=== PATIENT | female | born 1930 | race Caucasian/White ===

== ENCOUNTER → 2018-05-01 | Day surgery (SDC) | payer MEDICARE ==
[2018-04-27 11:16] LABS: BASOPHILS # (AUTO) 0.1 (0.0-0.1); EOSINOPHILS # (AUTO) 0.1 (0.0-0.4); EOSINOPHILS % 1.3 % (0.0-6.0); HEMATOCRIT 31.5 % (34.2-44.1); HEMOGLOBIN 10.9 g/dL (12.0-16.0); LYMPHOCYTES # (AUTO) 1.7 (1.0-3.2); MEAN CORPUSCULAR HGB CONC 34.6 g/dL (31-35); MEAN CORPUSCULAR VOLUME 89.5 fL (81-99); MONOCYTES # (AUTO) 0.7 (0.2-0.8); MONOCYTES % 8.6 % (4.4-11.3); NEUTROPHILS # (AUTO) 5.3 (2.1-6.9); NEUTROPHILS % 66.8 % (38.7-80.0); PLATELET COUNT 286 x10e3/uL (140-360); RED BLOOD COUNT 3.52 x10e6/uL (3.6-5.1); RED CELL DISTRIBUTION WIDTH 12.2 % (11.7-14.4)
[~2018-05-01] MED LIST: ALPRAZOLAM0.5 M1; ARMOUR THYROID60 MG PO; CENTRUM SILVER1 EAC3; CITRACAL + D M1 EACH; COQ-10100 MG; DILTIAZEM 24HR180 M1; FISH OIL 1,0001 EAC2; GLUCOSAMINE SU750 M1; IRBESARTAN150 MG PO; KETAMINE HCL INJ 50 MG/ML 10 ML VIAL ONE; LIDOCAINE HCL 2% LOCAL INJ 5 ML SDV VIAL INJ ONE; MECLIZINE HCL12.5 MG PO; MONTELUKAST SOD10 MG PO; PANTOPRAZOLE SO40 MG PO; PROPOFOL IV EMULSION 10 MG/ML 50 ML VIAL ONE
[2018-05-01 11:30] VITALS: BP 143/83
--- NOTE | 2018-05-01 13:02 | Operative Report ---
DATE OF PROCEDURE: May 01, 2018 REFERRING PHYSICIAN: Dr. Rashi Capellan. PROCEDURE PERFORMED: Esophagogastroduodenoscopy. INDICATIONS FOR PROCEDURE: Upper abdominal pain, history of melena. MEDICATION: Patient was done under MAC. Please see anesthesiologist's note. PROCEDURE: With the patient in the left lateral decubitus position, the flexible fiberoptic Olympus gastroscope was introduced into the esophagus under direct visualization without any difficulty. The esophagus was within normal limits. The scope was then advanced with ease into the stomach, traversing a small sliding hiatal hernia. Mucosa overlying the antrum and the body revealed some patchy erythema and moderate edema, and biopsies were obtained and sent to stain for H. pylori. Pylorus appeared to be of normal contour and shape, was intubated with ease, and the scope was advanced all the way to the 2nd portion of the duodenum. The scope was then withdrawn slowly. Mucosa overlying the proximal 2nd portion and the duodenal bulb appeared to be within normal limits. The scope was then withdrawn back into the stomach and retroflexed, and the mucosa overlying the fundus and the cardia appeared to be within normal limits. The scope was then straightened out. The stomach was decompressed. The scope was subsequently withdrawn. Patient tolerated the procedure well. IMPRESSION: 1. Normal esophagus. 2. Small sliding hiatal hernia. 3. Gastritis biopsied. Biopsies sent to stain for H. pylori. PLAN: Follow up histology. Initiate Protonix 40 mg 1 p.o. q.a.m. a.c. Job#: [id number] EV cc:RASHI CAPELLAN M.D.
== END | disposition home or self-care (01) ==
LOC: OR 08:58
PROVIDERS: ATTEND Internal Medicine Gastroenterology
DX: K29.70 Gastritis, unspecified, without bleeding (principal); Z12.11 Encounter for screening for malignant neoplasm of colon; K59.00 Constipation, unspecified; K92.1 Melena; R10.13 Epigastric pain; R14.2 Eructation; Z87.19 Personal history of other diseases of the digestive system; Z88.1 Allergy status to other antibiotic agents; Z88.8 Allergy status to other drugs, medicaments and biological substances; K44.9 Diaphragmatic hernia without obstruction or gangrene; I12.9 Hypertensive chronic kidney disease with stage 1 through stage 4 chronic kidney disease, or unspecified chronic kidney disease; N18.9 Chronic kidney disease, unspecified; K31.9 Disease of stomach and duodenum, unspecified; Z01.810 Encounter for preprocedural cardiovascular examination; Z01.812 Encounter for preprocedural laboratory examination
CPT/HCPCS: 36415; 43239; 85025; 88305; 88312; 93005; J2001

== ENCOUNTER 2018-07-01 18:25 | Observation (INO) | payer MEDICARE ==
[~2018-07-01] VITALS: Ht 160 cm; Wt 49.9 kg
[~2018-07-01 18:25] MED LIST changes: -KETAMINE HCL INJ 50 MG/ML 10 ML VIAL ONE; -LIDOCAINE HCL 2% LOCAL INJ 5 ML SDV VIAL INJ ONE; -PROPOFOL IV EMULSION 10 MG/ML 50 ML VIAL ONE
--- OUTSIDE RECORDS SUMMARY | 2018-07-01 18:30 | XMS REPORT | Clinical Summary ---
Author Author [facility] Organization [facility] Address Unknown Phone Unavailable Care Team Providers Care Band Nailer Name Role Phone Asked, No Pcp PCP Unavailable Allergies Comments Active Allergy Reactions Severity Noted Date Codeine 12/30/2016 Morphine 12/14/2017 Penicillins 12/14/2017 Prednisone 12/30/2016 Sulfa (Sulfonamide 12/30/2016 Antibiotics) Medications End Date Status Medication Sig Dispensed Refills Start Date Active ALPRAZolam (XANAX) 0.5 MG Take 0.25 mg 0 tablet by mouth 2 (two) times a day. Active valsartan (DIOVAN) 160 MG Take 160 mg 0 tablet by mouth 2 (two) times a day. Active thyroid, pork, (ARMOUR Take 60 mg by 0 THYROID) 60 mg tablet mouth daily. Active diltiazem (CardIZEM) 90 Take 180 mg 0 MG tablet by mouth 2 (two) times a day. Active folic Take 1 tablet 0 acid/multivit-min/lutein by mouth (CENTRUM SILVER ORAL) daily. Active calcium citrate-vitamin Take 1 tablet 0 D3 (CITRACAL+D) 315-200 by mouth 2 mg-unit per tablet (two) times a day. Active om Take 2 0 3/E/linol/ala/oleic/gla/l capsules by ip (OMEGA 3-6-9 ORAL) mouth daily. Active glucosamine sulfate Take 1 tablet 0 (GLUCOSAMINE) 500 mg by mouth 2 tablet (two) times a day. Active coenzyme Q10 200 mg Take 200 mg 0 capsule by mouth daily. 01/01/2018 Discontinued azithromycin (ZITHROMAX) Take first 2 6 tablet 0 250 MG tablet tablets 8 together, then 1 every day until finished. 12/23/2017 Discontinued benzonatate (TESSALON) Take 1 21 capsule 0 100 MG capsule capsule (100 8 mg total) by mouth every 8 (eight) hours for 30 days. 12/23/2017 Discontinued albuterol (PROAIR Inhale 2 1 Inhaler 0 HFA,PROVENTIL puffs every 4 8 HFA,VENTOLIN HFA) 90 (four) hours mcg/actuation inhaler as needed for wheezing for up to 30 days. 12/23/2017 Discontinued pantoprazole (PROTONIX) Take 20 mg by 0 20 MG EC tablet mouth 2 (two) times a day before meals. 01/31/2018 clonIDINE (CATAPRES) 0.1 Take 1 tablet 30 tablet 0 MG tablet (0.1 mg 8 total) by mouth every 8 (eight) hours as needed for high blood pressure (SBP >180 or DBP >105) for up to 30 days. Active Problems Problem Noted Date Pneumonia of left lower lobe due to infectious organism 12/17/2017 Acute bronchitis with bronchospasm 12/14/2017 Essential hypertension 12/30/2016 Gastroesophageal reflux disease without esophagitis 12/30/2016 Resolved Problems Problem Noted Date Resolved Date Pneumonia 12/20/2017 01/01/2018 Hoarseness of voice 12/14/2017 12/30/2017 Hypoxia 12/14/2017 12/30/2017 Chest pain 12/30/2016 12/30/2017 Encounters Care Team Description Date Type Specialty Ney Paula MD Pneumonia of left lower lobe due to infectious organism (Primary Dx); Essential hypertension 12/19/2017 [facility] Acute - Encounter 01/01/2018 Sp De Oliveira MD 12/17/2017 Hospital Radiology Encounter Sp De Oliveira MD Hasnain, Syed Zafar, MD Pneumonia of left lower lobe due to infectious organism (Primary Dx); Cough; Bronchospasm 12/17/2017 Hospital General Internal Medicine - Encounter 12/19/2017 Misbah Meyers MD 12/14/2017 Hospital Radiology Encounter Misbah Meyers MD Acute bronchitis with bronchospasm (Primary Dx); Hypoxia; Hoarseness of voice 12/14/2017 Emergency Emergency Medicine after 06/30/2017 Family History Medical History Relation Name Comments Heart disease Father Hypertension Mother Relation Name Status Comments Father Mother Social History Date Tobacco Use Types Packs/Day Years Used 09/19/1949 - 12/17/1964 Former Smoker Cigarettes Smokeless Tobacco: Never Used Tobacco Cessation: Counseling Given: No Alcohol Use Drinks/Week oz/Week Comments No Sex Assigned at Date Recorded Not on file Industry Job Start Date Occupation Not on file Not on file Not on file Travel End Travel History Travel Start No recent travel history available. Last Filed Vital Signs Time Taken Vital Sign Reading 01/01/2018 3:39 PM CDT Blood Pressure 139/63 01/01/2018 3:39 PM CDT Pulse 65 01/01/2018 3:39 PM CDT Temperature 36.5 C (97.7 F) 01/01/2018 3:39 PM CDT Respiratory Rate 19 01/01/2018 3:39 PM CDT Oxygen Saturation 97% - Inhaled Oxygen - Concentration 12/20/2017 5:00 AM CDT Weight 52.9 kg (116 lb 9.6 oz) 12/17/2017 10:14 PM CDT Height 160 cm (5' 3") 12/20/2017 5:00 AM CDT Body Mass Index 20.65 Plan of Treatment Health Maintenance Due Date Last Done Comments SHINGRIX VACCINE (1 of 2) 1979 ZOSTER VACCINE 1989 PNEUMOCOCCAL 1994 POLYSACCHARIDE VACCINE AGE 65 AND OVER PNEUMOCOCCAL-13 1994 INFLUENZA VACCINE 03/04/2018 Procedures Comments Procedure Name Priority Date/Time Associated Diagnosis ZZESTIMATED GFR Routine 12/28/2017 4:00 AM CDT BASIC METABOLIC PANEL Routine 12/28/2017 4:00 AM CDT HC COMPLETE BLD COUNT Routine 12/28/2017 W/AUTO DIFF 4:00 AM CDT ZZESTIMATED GFR Routine 12/25/2017 5:00 AM CDT BASIC METABOLIC PANEL Routine 12/25/2017 5:00 AM CDT HC COMPLETE BLD COUNT Routine 12/25/2017 W/AUTO DIFF 5:00 AM CDT ECG 12-LEAD STAT 12/20/2017 6:16 AM CDT ZZESTIMATED GFR Routine 12/19/2017 4:15 AM CDT BASIC METABOLIC PANEL Routine 12/19/2017 4:15 AM CDT HC COMPLETE BLD COUNT Routine 12/19/2017 W/AUTO DIFF 4:15 AM CDT ZZESTIMATED GFR Routine 12/18/2017 5:10 AM CDT COMPREHENSIVE METABOLIC Routine 12/18/2017 PANEL 5:10 AM CDT HC COMPLETE BLD COUNT Routine 12/18/2017 W/AUTO DIFF 5:10 AM CDT INFLUENZA ANTIGEN Routine 12/17/2017 7:00 PM CDT BLOOD CULTURE, AEROBIC & Routine 12/17/2017 ANAEROBIC 6:[address] CHEST WO CONTRAST STAT 12/17/2017 6:44 PM CDT ZZESTIMATED GFR STAT 12/17/2017 6:10 PM CDT COMPREHENSIVE METABOLIC STAT 12/17/2017 PANEL 6:10 PM CDT HC COMPLETE BLD COUNT STAT 12/17/2017 W/AUTO DIFF 6:10 PM CDT BLOOD CULTURE, AEROBIC & Routine 12/17/2017 ANAEROBIC 6:10 PM CDT XR CHEST 1 VW PORTABLE STAT 12/14/2017 3:57 PM CDT after 06/30/2017 Results * Estimated GFR (12/28/2017 4:00 AM CDT) Only the most recent of 5 results within the time period is included. GFR Non Af Amer 35 (A) mL/min/1.73 m2 [facility] DEPARTMENT OF PATHOLOGY AND GENOMIC MEDICINE GFR Af Amer 43 (A) mL/min/1.73 m2 [facility] DEPARTMENT OF Comment: PATHOLOGY AND Chronic kidney disease: <60 GENOMIC MEDICINE mL/min/1.73m2 Kidney failure: <15 mL/min/1.73m2 The estimated GFR is calculated from the IDMS-traceable Modification of Diet in Renal Disease Equation. The accuracy of the calculation is poor when the creatinine is normal. Calculated values >90 mL/min/1.73m2 are not reported. This equation has not been validated in children (<18 years), women, the elderly (>70 years), or ethnic groups other than Caucasians and Americans. Specimen Plasma specimen Performing Organization Address City/State/Zipcode Phone Number [facility] DE[place]MENT [place] [id number] [place] [id number] PATHOLOGY AND GENOMIC MEDICINE * CBC with platelet and differential (12/28/2017 4:00 AM CDT) Only the most recent of 5 results within the time period is included. WBC 8.22 4.50 - 11.00 k/uL [facility] DEPARTMENT OF PATHOLOGY AND GENOMIC MEDICINE RBC 3.68 (L) 4.20 - 5.50 m/uL [facility] DEPARTMENT OF PATHOLOGY AND GENOMIC MEDICINE HGB 10.9 (L) 12.0 - 16.0 g/dL [facility] DEPARTMENT OF PATHOLOGY AND GENOMIC MEDICINE HCT 32.1 (L) 37.0 - 47.0 % [facility] DEPARTMENT OF PATHOLOGY AND GENOMIC MEDICINE MCV 87.2 82.0 - 100.0 fL [facility] DEPARTMENT OF PATHOLOGY AND GENOMIC MEDICINE MCH 29.6 27.0 - 34.0 pg [facility] DEPARTMENT OF PATHOLOGY AND GENOMIC MEDICINE MCHC 34.0 31.0 - 37.0 g/dL [facility] DEPARTMENT OF PATHOLOGY AND GENOMIC MEDICINE RDW - SD 41.0 37.0 - 55.0 fL [facility] DEPARTMENT OF PATHOLOGY AND GENOMIC MEDICINE MPV 9.5 8.8 - 13.2 fL [facility] DEPARTMENT OF PATHOLOGY AND GENOMIC MEDICINE Platelet count 306 150 - 400 k/uL [facility] DEPARTMENT OF PATHOLOGY AND GENOMIC MEDICINE Neutrophils 59.2 39.0 - 69.0 % [facility] DEPARTMENT OF PATHOLOGY AND GENOMIC MEDICINE Lymphocytes 26.0 25.0 - 45.0 % [facility] DEPARTMENT OF PATHOLOGY AND GENOMIC MEDICINE Monocytes 11.4 (H) 0.0 - 10.0 % [facility] DEPARTMENT OF PATHOLOGY AND GENOMIC MEDICINE Eosinophils 2.2 0.0 - 5.0 % [facility] DEPARTMENT OF PATHOLOGY AND GENOMIC MEDICINE Basophils 0.7 0.0 - 1.0 % [facility] DEPARTMENT OF PATHOLOGY AND GENOMIC MEDICINE Immature granulocytes 0.5 0.0 - 1.0 % [facility] DEPARTMENT OF PATHOLOGY AND GENOMIC MEDICINE Specimen Blood Performing Organization Address City/[facility]/Zipcode Phone Number [facility] [place] [id number] [address] PATHOLOGY AND GENOMIC MEDICINE * Basic metabolic panel (12/28/2017 4:00 AM CDT) Only the most recent of 3 results within the time period is included. Sodium 133 (L) 135 - 148 mEq/L [facility] DEPARTMENT OF PATHOLOGY AND GENOMIC MEDICINE Potassium 4.0 3.5 - 5.0 mEq/L [facility] DEPARTMENT OF PATHOLOGY AND GENOMIC MEDICINE Chloride 94 (L) 99 - 109 mEq/L [facility] DEPARTMENT OF PATHOLOGY AND GENOMIC MEDICINE CO2 24 24 - 31 mEq/L [facility] DEPARTMENT OF PATHOLOGY AND GENOMIC MEDICINE Anion gap 15@ANIO 7 - 15 mEq/L [facility] DEPARTMENT OF PATHOLOGY AND GENOMIC MEDICINE BUN 17 8 - 24 mg/dL [facility] DEPARTMENT OF PATHOLOGY AND GENOMIC MEDICINE Creatinine 1.4 0.5 - 1.5 mg/dL [facility] DEPARTMENT OF PATHOLOGY AND GENOMIC MEDICINE Glucose 93 65 - 99 mg/dL [facility] OF PATHOLOGY AND GENOMIC MEDICINE Calcium 9.5 8.6 - 10.6 mg/dL [facility] DEPARTMENT OF PATHOLOGY AND GENOMIC MEDICINE Specimen Plasma specimen Performing Organization Address City/[facility] Phone Number [place] [phone] [place] [address] PATHOLOGY AND GENOMIC MEDICINE * ECG 12 lead (12/20/2017 6:16 AM CDT) Ventricular rate 88 [facility] Atrial rate 88 [facility] NM interval 222 [facility] QRSD interval 134 [facility] QT interval 406 [facility] QTC interval 491 [facility] P axis 1 106 [facility] QRS axis 1 -23 [facility] T wave axis 116 [facility] EKG impression Sinus rhythm with 1st degree [facility] MUSE AV block-Left bundle branch block-Abnormal ECG- Performing Organization Address City/State/[facility] Phone Number [facility] [address] [place] [address] * Comprehensive metabolic panel (12/18/2017 5:10 AM CDT) Only the most recent of 2 results within the time period is included. Sodium 137 135 - 148 mEq/L [facility] DEPARTMENT OF PATHOLOGY AND GENOMIC MEDICINE Potassium 4.2 3.5 - 5.0 mEq/L [facility] OF PATHOLOGY AND GENOMIC MEDICINE Chloride 100 99 - 109 mEq/L [facility] DEPARTMENT OF PATHOLOGY AND GENOMIC MEDICINE CO2 26 24 - 31 mEq/L [facility] PATHOLOGY AND GENOMIC MEDICINE Anion gap 11@ANIO 7 - 15 mEq/L [facility] DEPARTMENT OF PATHOLOGY AND GENOMIC MEDICINE BUN 25 (H) 8 - 24 mg/dL [facility] DEPARTMENT OF PATHOLOGY AND GENOMIC MEDICINE Creatinine 1.3 0.5 - 1.5 mg/dL [facility] DEPARTMENT OF PATHOLOGY AND GENOMIC MEDICINE Glucose 92 65 - 99 mg/dL [facility] DEPARTMENT OF PATHOLOGY AND GENOMIC MEDICINE Calcium 8.2 (L) 8.6 - 10.6 mg/dL [facility] DEPARTMENT OF PATHOLOGY AND GENOMIC MEDICINE Protein 5.9 (L) 6.3 - 8.2 g/dL [facility] DEPARTMENT OF PATHOLOGY AND GENOMIC MEDICINE Albumin 2.7 (L) 3.5 - 5.0 g/dL [facility] DEPARTMENT OF PATHOLOGY AND GENOMIC MEDICINE A/G ratio 0.8 0.7 - 3.8 [facility] DEPARTMENT OF PATHOLOGY AND GENOMIC MEDICINE Alkaline phosphatase 91 30 - 115 U/L [facility] OF PATHOLOGY AND GENOMIC MEDICINE AST 18 15 - 46 U/L [facility] DEPARTMENT OF PATHOLOGY AND GENOMIC MEDICINE ALT 16 10 - 55 U/L [facility] DEPARTMENT OF PATHOLOGY AND [employer] MEDICINE Total bilirubin <0.3 0.2 - 1.2 mg/dL [facility] OF PATHOLOGY AND [employer] MEDICINE Specimen Plasma specimen Performing Organization Address City/[facility] Phone Number [facility] [place] [address] [place] [address] PATHOLOGY AND [employer] MEDICINE * Influenza antigen (12/17/2017 7:00 PM CDT) Influenza antigen Negative for Influenza A/B DEPARTMENT OF antigen. PATHOLOGY AND Comment: GENOMIC MEDICINE, Specimen Information [facility] Specimen Source: [facility] EM[facility]Y CARE Specimen Site: Left CENTER Specimen Nares - Left Performing Organization Address City/[facility]/[place] [id number] [address] [place] [address] PATHOLOGY AND GENOMIC MEDICINE, [facility] * Blood culture, aerobic & anaerobic (12/17/2017 6:55 PM CDT) Only the most recent of 2 results within the time period is included. Blood culture isolate No growth after 5 days of [facility] DEPARTMENT OF incubation. PATHOLOGY AND Comment: GENOMIC MEDICINE Specimen Information Specimen Source: Blood Specimen Site: Antecubital, right Specimen Blood - Antecubital, right Performing Organization Address City/State/Zipcode Phone Number [facility] DEPARTMENT OF [address] [place] [address] PATHOLOGY AND GENOMIC MEDICINE * CT Chest Wo Contrast (12/17/2017 6:44 PM CDT) Narrative Performed At Examination:CT CHEST WO CONTRAST [facility] Clinical history:"cough" Comparison:There are no prior studies for comparison. Technique:Multiple axial images of the chest were obtained in the absence of intravenous contrast. The absence of intravenous contrast reduces the sensitivity of detecting solid organ and vascular disease.Sagittal and coronal computerized, reformatted images were obtained and archived. CT imaging was performed using radiation dose reduction techniques.Technical factors are evaluated and adjusted to ensure appropriate moderation of exposure.Automated dose management technology is applied to adjust radiation exposure while achieving a diagnostic quality image. IMPRESSION: Within the lungs, there is atelectasis of much of the left lower lobe with debris versus an obstructing lesion within the left lower lobe bronchus.A left lower lobe pulmonary nodule versus mass with a small concomitant infiltrate within the left lower lobe cannot be excluded in this setting.The remainder of the left lung and the entirety of the right lung are otherwise clear.There are no pleural effusions or pneumothoraces. 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 Borderline enlarged mediastinal lymph nodes are noted without evidence of axillary lymphadenopathy. The heart is mildly enlarged.There is no evidence of a pericardial effusion. Within the imaged portions of the upper abdomen, renal cysts are identified bilaterally with what appears to be an incompletely imaged right extrarenal pelvis. Within the imaged bones, no acute abnormalities are identified. [id number] Procedure Note Interface, Radiology Results Incoming - 12/17/2017 7:02 PM CDT Examination: CT CHEST WO CONTRAST Clinical history: "cough" Comparison: There are no prior studies for comparison. Technique: Multiple axial images of the chest were obtained in the absence of intravenous contrast. The absence of intravenous contrast reduces the sensitivity of detecting solid organ and vascular disease. Sagittal and coronal computerized, reformatted images were obtained and archived. CT imaging was performed using radiation dose reduction techniques. Technical factors are evaluated and adjusted to ensure appropriate moderation of exposure. Automated dose management technology is applied to adjust radiation exposure while achieving a diagnostic quality image. IMPRESSION: Within the lungs, there is atelectasis of much of the left lower lobe with debris versus an obstructing lesion within the left lower lobe bronchus. A left lower lobe pulmonary nodule versus mass with a small concomitant infiltrate within the left lower lobe cannot be excluded in this setting. The remainder of the left lung and the entirety of the right lung are otherwise clear. There are no pleural effusions or pneumothoraces. There is extensive calcific atherosclerosis of the thoracic aorta without evidence of thoracic aortic aneurysm. Evaluation of vessel patency and for potential aortic dissection is not possible given the absence of intravenous contrast. Borderline enlarged mediastinal lymph nodes are noted without evidence of axillary lymphadenopathy. The heart is mildly enlarged. There is no evidence of a pericardial effusion. Within the imaged portions of the upper abdomen, renal cysts are identified bilaterally with what appears to be an incompletely imaged right extrarenal pelvis. Within the imaged bones, no acute abnormalities are identified. [facility]-[id number] Performing Organization Address City/State/Zipcode Phone Number [facility] [address] [place] [address] * XR Chest 1 Vw Portable (12/14/2017 3:57 PM CDT) Narrative Performed At EXAMINATION:XR CHEST 1 VW PORTABLE [facility] CLINICAL HISTORY:Cough COMPARISON:Single view chest from 12/30/2016 IMPRESSION: An AP radiograph of the chest was submitted for interpretation. Bibasilar atelectasis. The lungs are otherwise clear. No focal consolidation or pleural effusion. No pneumothorax. The mediastinal contours and cardiac silhouette are unchanged. Atherosclerotic disease. The bones are unremarkable. [id number] Procedure Note Interface, Radiology Results Incoming - 12/14/2017 4:01 PM CDT EXAMINATION: XR CHEST 1 VW PORTABLE CLINICAL HISTORY: Cough COMPARISON: Single view chest from 12/30/2016 IMPRESSION: An AP radiograph of the chest was submitted for interpretation. Bibasilar atelectasis. The lungs are otherwise clear. No focal consolidation or pleural effusion. No pneumothorax. The mediastinal contours and cardiac silhouette are unchanged. Atherosclerotic disease. The bones are unremarkable. [id number] Performing Organization Address City/State/Zipcode Phone Number [facility] [address] [place] [address] after 06/30/2017 Insurance Payer Benefit Subscriber ID Type Phone Address Plan / Group MEDICARE MEDICARE xxxxxxxxxx Medicare [place] PART A [place] B AARP AARP xxxxxxxxxxx Commercial SUPPLEMENT Advance Directives Patient has advance care planning documents on file. For more information, tomasz alvarez contact: Emile Vasquez [address] [place] [address]
[2018-07-01 19:22] LABS: BASOPHILS # (AUTO) 0.1 (0.0-0.1); BASOPHILS % 1.1 % (0.0-1.0); EOSINOPHILS # (AUTO) 0.2 (0.0-0.4); EOSINOPHILS % 2.7 % (0.0-6.0); HEMATOCRIT 26.2 % (34.2-44.1); HEMOGLOBIN 8.7 g/dL (12.0-16.0); LYMPHOCYTES # (AUTO) 1.6 (1.0-3.2); LYMPHOCYTES % 24.8 % (18.0-39.1); MEAN CORPUSCULAR HEMOGLOBIN 28.8 pg (28-32); MEAN CORPUSCULAR HGB CONC 33.2 g/dL (31-35); MEAN CORPUSCULAR VOLUME 86.8 fL (81-99); MONOCYTES # (AUTO) 0.7 (0.2-0.8); MONOCYTES % 10.3 % (4.4-11.3); NEUTROPHILS % 60.9 % (38.7-80.0); PLATELET COUNT 289 x10e3/uL (140-360); RED BLOOD COUNT 3.02 x10e6/uL (3.6-5.1); RED CELL DISTRIBUTION WIDTH 11.5 % (11.7-14.4)
[2018-07-01 19:27] LABS: INR 0.88; PROTHROMBIN TIME 12.8 seconds (11.9-14.5)
[2018-07-01 19:28] LABS: PARTIAL THROMBOPLASTIN TIME 27.6 seconds (23.8-35.5)
[2018-07-01 19:34] LABS: ALBUMIN/GLOBULIN RATIO 1.1 (0.8-2.0); ANION GAP 12.2 mmol/L (8-16); CREATININE, SERUM 1.55 mg/dL (0.57-1.11); POTASSIUM 4.2 mmol/L (3.5-5.1)
[2018-07-01 19:41] LABS: CREATINE KINASE MB 2.1 ng/mL (0-5.0)
[2018-07-01] MEDS ORDERED: ONDANSETRON HCL INJ 2 MG/ML VIAL IV PRN (23:15)
[2018-07-01] MEDS ORDERED: HYDRALAZINE HCL 20 MG/ML VIAL IV PRN (23:15)
[2018-07-01] MEDS ORDERED: SODIUM CHLORIDE 0.9% 250ML 250 ML IV ONE (23:15)
[2018-07-01] MEDS ORDERED: FUROSEMIDE INJ 10 MG/ML 2 ML VIAL IV PRN (23:15)
--- OUTSIDE RECORDS SUMMARY | 2018-07-01 23:38 | XMS REPORT | Clinical Summary ---
Author Author Emile Mormon Organization [facility] Address Unknown Phone Unavailable Care Team Providers Care Registered Nursing Professor Name Role Phone Asked, No Pcp PCP [...] infectious organism (Primary Dx); Essential hypertension 12/19/2017 [facility] Custodial Care Acute - Encounter 01/01/2018 Sp De [...] Non Af Amer 35 (A) mL/min/1.73 m2 [facility] DEPARTMENT OF PATHOLOGY AND GENOMIC MEDICINE GFR Af Amer 43 (A) mL/min/1.73 m2 [facility] DEPARTMENT OF Comment: PATHOLOGY AND Chronic kidney [...] specimen Performing Organization Address City/State/Zipcode Phone Number [facility] [place]PARTMENT [place] [address] [place] [id number] PATHOLOGY AND GENOMIC MEDICINE * CBC with platelet and differential (12/28/2017 4:00 AM CDT) Only the most recent of 5 results within the time period is included. WBC 8.22 4.50 - 11.00 k/uL [facility] DEPARTMENT OF PATHOLOGY AND GENOMIC MEDICINE RBC 3.68 (L) 4.20 - 5.50 m/uL [facility] DEPARTMENT OF PATHOLOGY AND GENOMIC MEDICINE HGB 10.9 (L) 12.0 - 16.0 g/dL [facility] DEPARTMENT OF PATHOLOGY AND GENOMIC MEDICINE HCT 32.1 (L) 37.0 - 47.0 % [facility] DEPARTMENT OF PATHOLOGY AND GENOMIC MEDICINE MCV 87.2 82.0 - 100.0 fL [facility] DEPARTMENT OF PATHOLOGY AND GENOMIC MEDICINE MCH 29.6 27.0 - 34.0 pg [facility] DEPARTMENT OF PATHOLOGY AND GENOMIC MEDICINE MCHC 34.0 31.0 - 37.0 g/dL [facility] DEPARTMENT OF PATHOLOGY AND GENOMIC MEDICINE RDW - SD 41.0 37.0 - 55.0 fL [facility] DEPARTMENT OF PATHOLOGY AND GENOMIC MEDICINE MPV 9.5 8.8 - 13.2 fL [facility] DEPARTMENT OF PATHOLOGY AND GENOMIC MEDICINE Platelet count 306 150 - 400 k/uL [facility] DEPARTMENT OF PATHOLOGY AND GENOMIC MEDICINE Neutrophils 59.2 39.0 - 69.0 % [facility] DEPARTMENT OF PATHOLOGY AND GENOMIC MEDICINE Lymphocytes 26.0 25.0 - 45.0 % [facility] DEPARTMENT OF PATHOLOGY AND GENOMIC MEDICINE Monocytes 11.4 (H) 0.0 - 10.0 % [facility] DEPARTMENT OF PATHOLOGY AND GENOMIC MEDICINE Eosinophils 2.2 0.0 - 5.0 % [facility] DEPARTMENT OF PATHOLOGY AND GENOMIC MEDICINE Basophils 0.7 0.0 - 1.0 % [facility] DEPARTMENT OF PATHOLOGY AND GENOMIC MEDICINE Immature granulocytes 0.5 0.0 - 1.0 % [facility] DEPARTMENT OF PATHOLOGY AND GENOMIC MEDICINE Specimen Blood Performing Organization Address City/[facility]/Zipcode Phone Number [facility] [place]PARTMENT [place] [id number] [address] PATHOLOGY AND GENOMIC MEDICINE * Basic metabolic panel (12/28/2017 4:00 AM CDT) Only the most recent of 3 results within the time period is included. Sodium 133 (L) 135 - 148 mEq/L [facility] DEPARTMENT OF PATHOLOGY AND GENOMIC MEDICINE Potassium 4.0 3.5 - 5.0 mEq/L [facility] DEPARTMENT OF PATHOLOGY AND GENOMIC MEDICINE Chloride 94 (L) 99 - 109 mEq/L [facility] DEPARTMENT OF PATHOLOGY AND GENOMIC MEDICINE CO2 24 24 - 31 mEq/L [facility] DEPARTMENT OF PATHOLOGY AND GENOMIC MEDICINE Anion gap 15@ANIO 7 - 15 mEq/L [facility] DEPARTMENT OF PATHOLOGY AND GENOMIC MEDICINE BUN 17 8 - 24 mg/dL [facility] DEPARTMENT OF PATHOLOGY AND GENOMIC MEDICINE Creatinine 1.4 0.5 - 1.5 mg/dL [facility] DEPARTMENT OF PATHOLOGY AND GENOMIC MEDICINE Glucose 93 65 - 99 mg/dL [facility] OF PATHOLOGY AND GENOMIC MEDICINE Calcium 9.5 8.6 - 10.6 mg/dL [facility] DEPARTMENT OF PATHOLOGY AND GENOMIC MEDICINE Specimen Plasma specimen Performing Organization Address City/[facility] Cent[facility]ode Phone Number [place] [address] [place] [address] PATHOLOGY AND GENOMIC MEDICINE * ECG 12 lead (12/20/2017 6:16 AM CDT) Ventricular rate 88 [facility] Atrial rate 88 [facility] ND interval 222 [facility] QRSD interval 134 [facility] QT interval 406 [facility] QTC interval 491 [facility] P axis 1 106 [facility] QRS axis 1 -23 [facility] T wave axis 116 [facility] EKG impression Sinus rhythm with 1st degree [facility] MUSE AV block-Left bundle branch block-Abnormal ECG- Performing Organization Address City/State/[facility] Cent[facility]ode Phone Number [facility] MUSE [address] [place] [address] * Comprehensive metabolic panel (12/18/2017 5:10 AM CDT) Only the most recent of 2 results within the time period is included. Sodium 137 135 - 148 mEq/L [facility] DEPARTMENT OF PATHOLOGY AND GENOMIC MEDICINE Potassium 4.2 3.5 - 5.0 mEq/L [facility] OF PATHOLOGY AND GENOMIC MEDICINE Chloride 100 99 - 109 mEq/L [facility] DEPARTMENT OF PATHOLOGY AND GENOMIC MEDICINE CO2 26 24 - 31 mEq/L [facility] PATHOLOGY AND GENOMIC MEDICINE Anion gap 11@ANIO 7 - 15 mEq/L [facility] DEPARTMENT OF PATHOLOGY AND GENOMIC MEDICINE BUN 25 (H) 8 - 24 mg/dL [facility] DEPARTMENT OF PATHOLOGY AND GENOMIC MEDICINE Creatinine 1.3 0.5 - 1.5 mg/dL [facility] DEPARTMENT OF PATHOLOGY AND GENOMIC MEDICINE Glucose 92 65 - 99 mg/dL [facility] DEPARTMENT OF PATHOLOGY AND GENOMIC MEDICINE Calcium 8.2 (L) 8.6 - 10.6 mg/dL [facility] DEPARTMENT OF PATHOLOGY AND GENOMIC MEDICINE Protein 5.9 (L) 6.3 - 8.2 g/dL [facility] DEPARTMENT OF PATHOLOGY AND GENOMIC MEDICINE Albumin 2.7 (L) 3.5 - 5.0 g/dL [facility] DEPARTMENT OF PATHOLOGY AND GENOMIC MEDICINE A/G ratio 0.8 0.7 - 3.8 [facility] DEPARTMENT OF PATHOLOGY AND GENOMIC MEDICINE Alkaline phosphatase 91 30 - 115 U/L [facility] OF PATHOLOGY AND GENOMIC MEDICINE AST 18 15 - 46 U/L [facility] DEPARTMENT OF PATHOLOGY AND GENOMIC MEDICINE ALT 16 10 - 55 U/L [facility] DEPARTMENT OF PATHOLOGY AND [employer] MEDICINE Total bilirubin <0.3 0.2 - 1.2 mg/dL [facility] OF PATHOLOGY AND [employer] [employer] [facility] MEDICINE Specimen Plasma specimen Performing Organization Address City/[facility] Centercode Phone Number [facility] [place] [address] [place] [address] PATHOLOGY AND [employer] MEDICINE * Influenza antigen (12/17/2017 7:00 PM CDT) Influenza antigen Negative for Influenza A/B DEPARTMENT OF antigen. PATHOLOGY AND Comment: GENOMIC MEDICINE, Specimen Information [facility] Specimen Source: [facility] Specimen Site: Left CENTER Specimen Nares - Left Performing Organization Address City/[facility]/[place] [address] [address] [place] [address] PATHOLOGY AND GENOMIC MEDICINE, [facility] * Blood culture, aerobic & anaerobic (12/17/2017 6:55 PM CDT) Only the most recent of 2 results within the time period is included. Blood culture isolate No growth after 5 days of [facility] DEPARTMENT OF incubation. PATHOLOGY AND Comment: GENOMIC MEDICINE Specimen Information Specimen Source: Blood Specimen Site: Antecubital, right Specimen Blood - Antecubital, right Performing Organization Address City/State/Zipcode Phone Number [facility] DEPARTMENT OF [address] [place] [address] PATHOLOGY AND GENOMIC MEDICINE * CT Chest [...] imaged bones, no acute abnormalities are identified. [id number] Procedure Note Interface, Radiology Results Incoming - [...] imaged bones, no acute abnormalities are identified. [facility]-[id number] Performing Organization Address City/State/Zipcode Phone Number [facility] [address] [place] [address] * XR Chest 1 Vw Portable (12/14/2017 [...] unchanged. Atherosclerotic disease. The bones are unremarkable. [id number] Procedure Note Interface, Radiology Results Incoming - [...] unchanged. Atherosclerotic disease. The bones are unremarkable. [id number] Performing Organization Address City/State/Zipcode Phone Number [facility] [address] [place] [address] after 06/30/2017 Insurance Payer Benefit Subscriber ID Type Phone Address Plan / Group MEDICARE MEDICARE xxxxxxxxxx Medicare [place], [place] PART A [place] B AARP AARP xxxxxxxxxxx Commercial SUPPLEMENT Advance Directives Patient has advance care planning documents on file. For more information, tomasz alvarez contact: Emile Vasquez [address] [place] [address]
[2018-07-02] MEDS ORDERED: HYDROMORPHONE 2MG/ML 2 MG/ML ML IV ONE (00:30)
--- NOTE | 2018-07-02 02:35 | NUR ---
blood transfusion initiated
--- NOTE | 2018-07-02 05:19 | NUR ---
blood transfusion ended
--- NOTE | 2018-07-02 05:30 | NUR ---
no adverse reactions noted to patient post transfusion
--- NOTE | 2018-07-02 06:13 | NUR ---
patient wants to be left alone for a couple hours so she can sleep, explained to her the need for second blood transfusion, patients wants to hold off until later on. charge nurse and md aware
[2018-07-02] MEDS: SODIUM CHLORIDE 0.9% 1000ML 1,000 ML IV SCH ×2 (06:58→13:42)
--- NOTE | 2018-07-02 07:11 | NUR ---
report given to maciej hua
[2018-07-02] MEDS ORDERED: CLONIDINE HCL 0.1 MG TAB PO NR (07:15)
[2018-07-02 07:37] LABS: BASOPHILS # (AUTO) 0.1 (0.0-0.1); BASOPHILS % 0.9 % (0.0-1.0); EOSINOPHILS # (AUTO) 0.1 (0.0-0.4); HEMATOCRIT 32.2 % (34.2-44.1); HEMOGLOBIN 10.6 g/dL (12.0-16.0); LYMPHOCYTES # (AUTO) 1.1 (1.0-3.2); LYMPHOCYTES % 15.8 % (18.0-39.1); MEAN CORPUSCULAR HEMOGLOBIN 28.4 pg (28-32); MEAN CORPUSCULAR HGB CONC 32.9 g/dL (31-35); MEAN CORPUSCULAR VOLUME 86.3 fL (81-99); MONOCYTES # (AUTO) 0.5 (0.2-0.8); MONOCYTES % 7.3 % (4.4-11.3); NEUTROPHILS % 74.9 % (38.7-80.0); PLATELET COUNT 296 x10e3/uL (140-360); RED BLOOD COUNT 3.73 x10e6/uL (3.6-5.1); RED CELL DISTRIBUTION WIDTH 11.7 % (11.7-14.4)
[2018-07-02 07:53] LABS: ALBUMIN/GLOBULIN RATIO 1.1 (0.8-2.0); ANION GAP 16.5 mmol/L (8-16); CALCIUM 9.7 mg/dL (8.4-10.2); CREATININE, SERUM 1.27 mg/dL (0.57-1.11); POTASSIUM 4.5 mmol/L (3.5-5.1)
[2018-07-02] MEDS ORDERED: DILTIAZEM HCL 180 MG CAP ER PO SCH (09:00)
[2018-07-02] MEDS ORDERED: ONDANSETRON HCL INJ 2 MG/ML VIAL IV PRN (09:00)
[2018-07-02] MEDS ORDERED: MECLIZINE HCL 12.5 MG TAB PO SCH (09:00)
[2018-07-02] MEDS: PANTOPRAZOLE 40 MG 10ML VIAL IV SCH (09:15)
[2018-07-02] MEDS: THYROID 60 MG TAB PO SCH (09:15)
[2018-07-02] MEDS: ALPRAZOLAM 0.5 MG TAB PO PRN ×2 (09:19→22:49)
[2018-07-02] MEDS ORDERED: CARAFATE1 GM/10 ML PO (09:21)
[2018-07-02] MEDS ORDERED: IRBESARTAN 150 MG TAB PO SCH (09:30)
--- NOTE | 2018-07-02 12:14 | NUR ---
report called to primo. pt stable
[2018-07-02] MEDS: ENALAPRILAT IV INJ 1.25 MG/ML VIAL IV PRN (12:16)
[2018-07-02 12:30] VITALS: BP 159/68
--- NOTE | 2018-07-02 12:30 | NUR ---
RECEIVED PATIENT TO ROOM 177 FROM ED, AA/O X3. NO C/O AT PRESENT. ADM ASSESSMENT COMPLETE, VSS. ORIENTED TO ROOM, CALL SYSTEM, AND MEALS. PT IS NPO AT PRESENT
[2018-07-02 13:04] VITALS: BP 159/68
[2018-07-02] MEDS ORDERED: BENEFIBER1 EAC1 PO (13:42)
[2018-07-02] MEDS: ACETAMINOPHEN 325 MG TAB PO PRN (15:05)
[2018-07-02 15:25] VITALS: BP 131/74
[2018-07-02 20:00] VITALS: BP 188/86
[2018-07-02] MEDS: DILTIAZEM HCL 180 MG CAP ER PO SCH (20:56)
[2018-07-02] MEDS: IRBESARTAN 150 MG TAB PO SCH (20:56)
--- NOTE | 2018-07-02 23:16 | NUR ---
Patient has signed consent form for colonoscopy which is scheduled for 07/03/18. Will continue to monitor patient.
[2018-07-03] VITALS (8 sets, daily range): BP systolic 140–192; BP diastolic 62–82
[2018-07-03] MEDS: SODIUM CHLORIDE 0.9% 1000ML 1,000 ML IV SCH ×2 (01:53→16:15)
[2018-07-03 03:39] LABS: BASOPHILS # (AUTO) 0.1 (0.0-0.1); BASOPHILS % 1.1 % (0.0-1.0); EOSINOPHILS # (AUTO) 0.3 (0.0-0.4); EOSINOPHILS % 4.4 % (0.0-6.0); HEMATOCRIT 27.7 % (34.2-44.1); HEMOGLOBIN 9.4 g/dL (12.0-16.0); LYMPHOCYTES # (AUTO) 1.9 (1.0-3.2); LYMPHOCYTES % 33.1 % (18.0-39.1); MEAN CORPUSCULAR HGB CONC 33.9 g/dL (31-35); MEAN CORPUSCULAR VOLUME 85.5 fL (81-99); MONOCYTES # (AUTO) 0.7 (0.2-0.8); MONOCYTES % 12.3 % (4.4-11.3); NEUTROPHILS # (AUTO) 2.8 (2.1-6.9); NEUTROPHILS % 48.9 % (38.7-80.0); PLATELET COUNT 212 x10e3/uL (140-360); RED BLOOD COUNT 3.24 x10e6/uL (3.6-5.1); RED CELL DISTRIBUTION WIDTH 11.6 % (11.7-14.4)
[2018-07-03 03:56] LABS: ANION GAP 13.9 mmol/L (8-16); CREATININE, SERUM 1.24 mg/dL (0.57-1.11); POTASSIUM 3.9 mmol/L (3.5-5.1)
[2018-07-03 04:21] LABS: FERRITIN 29.23 ng/mL (4.63-204.00)
[2018-07-03] MEDS ORDERED: BISACODYL 5 MG TAB EC PO ONE ×4 (05:00→06:30)
[2018-07-03] MEDS: THYROID 60 MG TAB PO SCH (05:18)
[2018-07-03] MEDS ORDERED: MECLIZINE HCL 12.5 MG TAB PO PRN (05:30)
--- NOTE | 2018-07-03 06:36 | NUR ---
PATIENTS BELIEVES STOOLS ARE CLEAR AND WANTS BOWEL MOVEMENT TO BE OBSERVED BY NURSE BEFORE SHE TAKES THE NEXT DOSE OF LAXATIVES. HAT HAS BEEN PLACED IN TOILET, AND PATIENT HAS BEEN INSTRUCTED TO NOTIFY NURSE AFTER SHE HAS HAD A BOWEL MOVEMENT. WILL CONTINUE TO MONITOR PATIENT.
[2018-07-03] MEDS ORDERED: CITRATE OF MAGNESIA 300ML BOTTLE PO ONE (08:00)
--- NOTE | 2018-07-03 08:21 | NUR ---
PT RECEIVED SITTING UP IN BED, AA/O X3, NO C/O AT PRESENT, DENIES ABD PAIN. ASSESSMENT COMPLETE, VSS. CURRENTLY BEING PREPPED FOR COLONOSCOPY WITH DR PERRY TODAY. DISCUSSED PLAN FOR DAY.
[2018-07-03] MEDS: ALPRAZOLAM 0.25 MG TAB PO SCH (09:00)
[2018-07-03] MEDS: DILTIAZEM HCL 180 MG CAP ER PO SCH ×2 (09:00→21:27)
[2018-07-03] MEDS: PANTOPRAZOLE 40 MG 10ML VIAL IV SCH (09:00)
[2018-07-03] MEDS: IRBESARTAN 150 MG TAB PO SCH ×2 (09:00→21:27)
[2018-07-03] MEDS: ENALAPRILAT IV INJ 1.25 MG/ML VIAL IV PRN (12:27)
--- NOTE | 2018-07-03 14:51 | NUR ---
CASE MANAGEMENT INITIAL ASSESSMENT Supervisor Wound to bedside to discuss plan of care with patient/family. CM/SW role and care transitions discussed. Anticipated discharge plan discussed along with duration of care. CM/SW discussed patients right to make decisions in care. CM/SW work hours given. Patient lives: HOUSE BY SELF Admit/Transfer: FROM ED POA/Emergency contact: SON THAT LIVES IN [place] [phone] Current/Previous Home Health: NONE PCP/Follow-up Care: ROGER Current/Previous DME: NONE Other Services: NONE Employment Status: RETIRED Areas of Concerns: NONE Referral Needs: NONE Education Needs: NONE IMM/[place] given and signed (if applicable): [place] Goal for discharge: RETURN HOME INDEPENDENTLY CM/SW left business card at the bedside with contact information. Name and number was also written on the patients whiteboard. Patient verbalized understanding of discussion. CM will follow-up with ongoing discharge and transition of care needs.
[2018-07-03] MEDS ORDERED: GLUCAGON FOR INJ 1 MG VIAL ONE (14:52)
[2018-07-03] MEDS ORDERED: PROPOFOL IV EMULSION 10 MG/ML 20 ML VIAL ONE (14:52)
[2018-07-03] MEDS ORDERED: MIDAZOLAM HCL 2 MG/2 ML VIAL ONE (16:21)
--- NOTE | 2018-07-03 17:55 | NUR ---
LEFT FLOOR FOR COLONOSCOPY
--- NOTE | 2018-07-03 19:06 | NUR ---
Report received and walking rounds complete. Pt off unit for colonoscopy.
--- NOTE | 2018-07-03 20:15 | NUR ---
Pt returned to floor from colonoscopy. Pt A&O and in no apparent distress. All safety measures ensured and pt call schwartz near. Pt encouraged to use call schwartz for assistance. Pt verbalized understanding.
[2018-07-03] MEDS ORDERED: ALPRAZOLAM 0.25 MG TAB PO SCH (21:00)
[2018-07-04] VITALS: BP 145/68
--- NOTE | 2018-07-04 02:32 | Operative Report ---
DATE OF PROCEDURE: July 03, 2018 REFERRING PHYSICIAN: Dr. Davonte Maloney. PROCEDURE PERFORMED: Colonoscopy with fulgurations of arteriovenous malformations and a polypectomy with hemoclipping. INDICATIONS FOR COLONOSCOPY: Anemia. MEDICATION: Patient was done under MAC. Please see anesthesiologist's note. PROCEDURE: With the patient in left lateral decubitus position, a flexible fiberoptic Olympus colonoscope was introduced into the rectum and advanced all the way to the cecum. Multiple AVMs were noted in the cecum and the proximal ascending colon and those were fulgurated with size 10-Prydeinig gold probe. An approximately 1-cm sessile polyp was snared from the proximal ascending colon, and polypectomy site was hemoclipped x3. The rest of the ascending, transverse, descending, and sigmoid other than for some scattered diverticular disease which was more prominent in the left colon appeared to be grossly within normal limits. The scope was then retroflexed into the distal rectum and a polypoid lesion potentially an inflamed hypertrophied anal papilla was removed per snare electrocautery. Small internal hemorrhoids were noted, none of which was actively bleeding. The scope was then straightened out. It was subsequently withdrawn. Patient tolerated the procedure well. IMPRESSION 1. 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 2. Approximately 1-cm sessile polyp, proximal ascending, removed per snare electrocautery and hemoclipped x3. 3. Diverticulosis. 4. Rectal polyp at the dentate line, removed per snare electrocautery (?) inflamed hypertrophied anal papilla. 5. Small internal hemorrhoids were also noted, none of which was actively bleeding. PLAN: Follow up histology. Initiate high-fiber, low-fat diet. Initiate high-fiber supplement. Follow H and H. Job#: [id number] LPA cc:DAVONTE MALONEY MD
[2018-07-04 04:00] VITALS: BP 183/83
[2018-07-04] MEDS: SODIUM CHLORIDE 0.9% 1000ML 1,000 ML IV SCH (04:33)
--- NOTE | 2018-07-04 04:56 | NUR ---
Pt BP 183/83 and given Hydralazine 10mg. Pt states she has a reaction/allergy to Hydralazine that causes her to "shake". Will monitor pt and reassess pt for reaction. Pt has had no reaction post administration so far. Will recheck BP and assess pt in 30 -45 mins.
[2018-07-04] MEDS: THYROID 60 MG TAB PO SCH (05:00)
[2018-07-04 05:14] LABS: BASOPHILS # (AUTO) 0.1 (0.0-0.1); BASOPHILS % 0.9 % (0.0-1.0); EOSINOPHILS # (AUTO) 0.2 (0.0-0.4); HEMATOCRIT 29.9 % (34.2-44.1); HEMOGLOBIN 9.8 g/dL (12.0-16.0); LYMPHOCYTES # (AUTO) 1.9 (1.0-3.2); MEAN CORPUSCULAR HEMOGLOBIN 28.1 pg (28-32); MEAN CORPUSCULAR HGB CONC 32.8 g/dL (31-35); MEAN CORPUSCULAR VOLUME 85.7 fL (81-99); MONOCYTES # (AUTO) 0.9 (0.2-0.8); MONOCYTES % 12.1 % (4.4-11.3); NEUTROPHILS # (AUTO) 4.4 (2.1-6.9); NEUTROPHILS % 59.7 % (38.7-80.0); PLATELET COUNT 268 x10e3/uL (140-360); RED BLOOD COUNT 3.49 x10e6/uL (3.6-5.1); RED CELL DISTRIBUTION WIDTH 11.8 % (11.7-14.4)
[2018-07-04 05:39] LABS: ANION GAP 12.7 mmol/L (8-16); CALCIUM 8.9 mg/dL (8.4-10.2); CREATININE, SERUM 1.14 mg/dL (0.57-1.11); MAGNESIUM 2.2 MG/DL (1.3-2.1); POTASSIUM 3.7 mmol/L (3.5-5.1)
--- NOTE | 2018-07-04 05:49 | NUR ---
Reassessed pt and rechecked BP. Pt has had no "shaking" or reaction to Hydralazine. Repeat BP 174/71 but pt now c/o headache. Offered pt Tylenol but she stated she will hold off for now. Will continue to monitor pt.
[2018-07-04] MEDS: ACETAMINOPHEN 325 MG TAB PO PRN (05:58)
--- NOTE | 2018-07-04 06:00 | NUR ---
Pt states headache still bothering her and wants to take Tylenol now. Tylenol 650mg given. Will reassess pt and recheck BP in 30- 45mins.
[2018-07-04 06:21] LABS: FREE T4 (FREE THYROXINE) 0.94 ng/dL (0.9-1.8); THYROID STIMULATING HORMONE 2.187 uIU/mL (0.350-4.940)
--- NOTE | 2018-07-04 06:46 | NUR ---
Pt states headache is resolved. Pt c/o lower back pain and just anxious that her BP is elevated. Pt states she has elevated BP due to being in the hospital . Repeat BP 180/ 82 and 2nd 192/83. Will pass on elevated BP in report and advise of situation.
--- NOTE | 2018-07-04 07:39 | NUR ---
report given to oncoming nurse
[2018-07-04] MEDS ORDERED: CARDURA XL4 MG PEG (07:52)
[2018-07-04 08:00] VITALS: BP 171/77
--- NOTE | 2018-07-04 08:24 | NUR ---
Dr Maloney discharged patient. Called Dr Kay and he instructed to discharge and follow up in one week.
[2018-07-04] MEDS: PANTOPRAZOLE 40 MG 10ML VIAL IV SCH (08:30)
[2018-07-04] MEDS: IRBESARTAN 150 MG TAB PO SCH (08:32)
[2018-07-04] MEDS: DILTIAZEM HCL 180 MG CAP ER PO SCH (08:33)
[2018-07-04] MEDS: ALPRAZOLAM 0.25 MG TAB PO SCH (08:33)
[2018-07-04] MEDS ORDERED: DOXAZOSIN MESYLATE 2 MG TAB PO SCH ×2 (09:00)
--- NOTE | 2018-07-05 04:52 | Discharge Summary ---
ADMISSION DIAGNOSES 1. Anemia. 2. Hypertension. 3. Gastritis. 4. Hypothyroidism. 5. Anxiety. 6. Acute kidney injury versus chronic kidney disease. 7. Vertigo. DISCHARGE DIAGNOSES 1. Anemia. 2. Hypertension. 3. Gastritis. 4. Hypothyroidism. 5. Anxiety. 6. Acute kidney injury versus chronic kidney disease. 7. Vertigo. 8. Hyponatremia, rule out gastrointestinal bleed. MEDICAL HISTORY: Hypertension, gastritis, hypothyroidism, anxiety, and vertigo. SURGICAL HISTORY: Cholecystectomy, right inguinal hernia repair, thyroidectomy, and right knee surgery. FAMILY HISTORY: Patient's daughter has diabetes. Patient's mom and dad had a stroke. SOCIAL HISTORY: Patient denies alcohol or illicit drug use, but admits to history of tobacco abuse, but she quit in 1966. HOSPITAL COURSE: This is an 87-year-old female, sent to the ER by Dr. Kay for anemia after dropping 2 gram in the office. Upon arrival to the ER, the patient's hemoglobin was 8.7. She also complained of shortness of breath and weakness over the last few weeks. She denies bright red blood per rectum, but admits to black stools for a few weeks. She denies nausea, vomiting, and abdominal pain. On admission, patient was given [address] Kay was consulted. Stool for blood was negative. Patient was started on IV fluids for the kidney injury. On July 03, 2018, patient had a colonoscopy, which found multiple AV malformations in the cecum without active bleeding. Approximately, a 1-cm polyp removed per snare and hemoclipped x3. Diverticulosis, rectal polyp removed per snare. Small internal hemorrhoids, none of which were bleeding. After the colonoscopy, patient's hemoglobin remained stable. Her blood pressure was uncontrolled, so she was started on Cardura 4 mg daily. Patient will follow up with Dr. Kay and primary care in 1 to 2 weeks. Vital signs stable, patient afebrile. Patient understands discharge instructions and agrees to plan. Dictated by: Kimberlyn Dow NP Job#: [id number] [facility]
== END 2018-07-04 11:16 | disposition home or self-care (01) ==
LOC: ER 18:25 → ERHOLD 23:35 → IMCU 07-02 12:52
PROVIDERS: ADMIT Internal Medicine; ATTEND Internal Medicine
DX: D64.9 Anemia, unspecified (principal); D12.2 Benign neoplasm of ascending colon; K62.1 Rectal polyp; N17.9 Acute kidney failure, unspecified; K29.70 Gastritis, unspecified, without bleeding; K62.6 Ulcer of anus and rectum; K62.3 Rectal prolapse; I12.9 Hypertensive chronic kidney disease with stage 1 through stage 4 chronic kidney disease, or unspecified chronic kidney disease; N18.9 Chronic kidney disease, unspecified; E89.0 Postprocedural hypothyroidism; Q27.33 Arteriovenous malformation of digestive system vessel; K57.30 Diverticulosis of large intestine without perforation or abscess without bleeding; K64.8 Other hemorrhoids; E87.1 Hypo-osmolality and hyponatremia; R42 Dizziness and giddiness; F41.9 Anxiety disorder, unspecified
CPT/HCPCS: 36415 ×4; 36430; 45385; 45388; 80048 ×2; 80053 ×2; 82270; 82550; 82553; 82607; 82728; 82746; 83540; 83735 ×2; 84439; 84443; 84466; 84484; 85025 ×4; 85610; 85730; 86850; 86900; 86920; 88305; 93005; 97161; 99284; G0378 ×4; G8978; G8979; G8980; J0360; J1610; J1940; J2250; J2704; J7030 ×2; P9016; 44391; 45378; 45384